=== PATIENT | female | born 1940 | race Two or more races ===

== ENCOUNTER 2020-09-24 03:20 | Emergency (ER) | payer OTHER ==
[~2020-09-24] VITALS: Ht 157.5 cm; Wt 52.6 kg
--- NOTE | 2020-09-24 03:31 | NUR ---
MARCO ANTONIO FROM HOME FOR C/O GENERALIZED WEAKNESS. PER EMS THEY FOUND THE PT SITTING ON HTE COUCH ON THE SCENE AND THE AND THE CG WERE NOT ABLE TO PICK HER UP. PER EMS PT IS NOT DAILY RISPERDAL BUT SHE HAD AN EXTRA DOSE AT [facility]. PT ALERT AND RESPONSIVE BUT CONFUSED. PT WAS ASSISTED TO BED 3 ER AND WAS PLACED ON A MONITOR, VSS. WILL CONT TO MONITOR ,
--- NOTE | 2020-09-24 03:45 | NUR ---
EKG at the bedside
--- NOTE | 2020-09-24 03:46 | NUR ---
Blood drawn by forest worker.
--- NOTE | 2020-09-24 03:54 | NUR ---
Xray at the bedside
[2020-09-24 03:58] LABS: BASOPHILS % (AUTO) 0.1 % (0.0-2.0); EOSINOPHILS % (AUTO) 0.3 % (0.0-6.0); HEMATOCRIT 34 % (33-45); HEMOGLOBIN 10.7 g/dL (11.5-14.8); LYMPHOCYTES # (AUTO) 1.3 /CMM (0.8-4.8); MEAN CORPUSCULAR HGB CONC 32 g/dl (31.0-36.0); MEAN CORPUSCULAR VOLUME 80 fL (82-100); MONOCYTES # (AUTO) 0.9 /CMM (0.1-1.30); MONOCYTES % (AUTO) 9.2 % (2.0-12.0); NEUTROPHILS # (AUTO) 7.7 /CMM (1.8-8.9); NEUTROPHILS % (AUTO) 77.4 % (43.0-81.0); PLATELET COUNT (AUTO) 160 /CMM (150-450); RED BLOOD CELL COUNT(AUTO) 4.26 MIL/uL (4.0-5.2)
[2020-09-24] MEDS ORDERED: IV NS 0.9% 1,000 ML BAG IV ONE (04:00)
--- NOTE | 2020-09-24 04:00 | NUR ---
Send UA to lab
[2020-09-24 04:01] LABS: CALCIUM, SERUM 9.8 mg/dL (8.5-10.1); CARBON DIOXIDE 23 mmol/L (21-32); CHLORIDE 101 mmol/L (98-107); CREATININE 3.7 mg/dL (0.6-1.3); GLUCOSE 168 mg/dL (74-106); POTASSIUM 4.6 mmol/L (3.5-5.1); SODIUM SERUM 135 mmol/L (136-145); UREA NITROGEN, BLOOD 52 mg/dL (7-18)
[2020-09-24 04:06] LABS: ALANINE AMINOTRANSFERASE 19 U/L (12-78); ALBUMIN 3.3 g/dL (3.4-5.0); ALKALINE PHOSPHATASE 64 U/L (46-116); ASPARTATE AMINOTRANSFERASE 31 U/L (15-37); BILIRUBIN,DIRECT 0.2 mg/dL (0.0-0.2); BILIRUBIN,TOTAL 0.6 mg/dL (0.2-1.0); LIPASE 154 U/L (73-393)
[2020-09-24 04:21] LABS: BILIRUBIN,URINE SMALL (NEGATIVE); COLOR,URINE YELLOW (YELLOW); LEUKOCYTE ESTERASE ,URINE NEGATIVE (NEGATIVE); NITRITE, URINE NEGATIVE (NEGATIVE); PROTEIN,URINE TRACE mg/dl (NEGATIVE); UGLUCOSE NEGATIVE (NEGATIVE); UROBILINOGEN,URINE 0.2 EU/dL (0.2)
--- NOTE | 2020-09-24 04:36 | NUR ---
Pt passed nursing swallow eval without any difficulties.
[2020-09-24 04:37] LABS: BACTERIA,URINE 1+ /HPF (None Seen); MUCUS,URINE Few /LPF (None Seen); RBC,URINE 0-2 /HPF (0-2); SQUAMOUS EPITHELIAL CELL,UR Few /HPF (None Seen); URINE AMORPHOUS URATE Few /HPF (None Seen)
--- NOTE | 2020-09-24 04:40 | NUR ---
[facility] PAGED PER DR RODRIGUEZ.
--- NOTE | 2020-09-24 04:44 | NUR ---
hydrotreater operator at the bedside to get blood drawn.
--- NOTE | 2020-09-24 04:45 | NUR ---
Send covid swab to lab.
[2020-09-24] MEDS ORDERED: CEFTRIAXONE 1GM BAG (ER ONLY) 50 ML IV ONE ×2 (04:54→05:00)
[2020-09-24] MEDS ORDERED: AZITHROMYCIN 500 MG in IV D5W 250 ML IV ONE (05:00)
[2020-09-24] MEDS ORDERED: AZITHROMYCIN 500 MG VIAL ONE (05:09)
--- NOTE | 2020-09-24 05:18 | NUR ---
Received a phone call from safia Mercado regarding Pt lactic acid is 2.5. Dr. Munguia is aware and informed.
--- NOTE | 2020-09-24 05:53 | NUR ---
CALL FROM [facility]. PT ACCEPTED TO [facility], ROOM 5111, BY DR LOWRY. # FOR REPORT [phone]. [facility] ETA [id number]
--- NOTE | 2020-09-24 06:08 | NUR ---
report given to zoila neely [facility]
[2020-09-24 07:04] VITALS: BP 134/74
--- NOTE | 2020-09-24 07:12 | NUR ---
Gave report to RJ Nova for JOSÉ MIGUEL.
--- NOTE | 2020-09-24 07:58 | NUR ---
patient picked up by [facility] in stable condition, in no distress, going to [facility].
== END 2020-09-24 07:58 | disposition short-term general hospital (02) ==
LOC: ER 03:22
DX: N17.9 Acute kidney failure, unspecified (principal); J18.9 Pneumonia, unspecified organism; I95.9 Hypotension, unspecified; E11.9 Type 2 diabetes mellitus without complications; I10 Essential (primary) hypertension; Z20.822 Contact with and (suspected) exposure to COVID-19
CPT/HCPCS: 36415; 71045; 80048; 80076; 81001; 83605 ×2; 83690; 84484; 85025; 87040 ×2; 87086; 87426; 93005; 96361; 96365; 96367; 99285; C9803; J0456; J0696; J7030; J7060

== ENCOUNTER 2023-12-18 17:34 | Emergency (ER) | payer OTHER ==
[~2023-12-18] VITALS: Ht 162.6 cm; Wt 54.4 kg
[2023-12-18 17:49] VITALS: TEMP 98
[2023-12-18 18:07] LABS: BASOPHILS # (AUTO) 0.1 K/uL (0.0-0.2); BASOPHILS % (AUTO) 0.8 % (0.0-2.0); EOSINOPHILS # (AUTO) 0.2 K/uL (0.0-0.7); EOSINOPHILS % (AUTO) 2.8 % (0.0-6.0); HEMATOCRIT 33 % (33-45); HEMOGLOBIN 9.9 g/dL (11.5-14.8); LYMPHOCYTES # (AUTO) 1.2 K/uL (0.8-4.8); LYMPHOCYTES % (AUTO) 19.5 % (20.0-44.0); MEAN CORPUSCULAR HEMOGLOBIN 22 PG (26.0-33.0); MEAN CORPUSCULAR HGB CONC 30 g/dl (31.0-36.0); MEAN CORPUSCULAR VOLUME 71 fL (82-100); MONOCYTES # (AUTO) 0.7 K/uL (0.1-1.30); MONOCYTES % (AUTO) 11.6 % (2.0-12.0); NEUTROPHILS # (AUTO) 4.2 K/uL (1.8-8.9); NEUTROPHILS % (AUTO) 65.3 % (43.0-81.0); PLATELET COUNT (AUTO) 153 K/uL (150-450); RED BLOOD CELL COUNT(AUTO) 4.58 MIL/uL (4.0-5.2); RED CELL DISTRIBUTION WIDTH 18.7 % (11.5-15.0); WHITE BLOOD COUNT (AUTO) 6.4 K/uL (4.3-11.0)
[2023-12-18] MEDS ORDERED: SIMV-49 PO (18:11)
[2023-12-18] MEDS ORDERED: PROP10TA68 PO (18:11)
[2023-12-18] MEDS ORDERED: DULO30CA52 PO (18:11)
[2023-12-18] MEDS ORDERED: BUSP5TAB3 PO (18:11)
[2023-12-18] MEDS ORDERED: PREG-57 PO (18:11)
[2023-12-18] MEDS ORDERED: IBUP-1955 PO (18:11)
[2023-12-18] MEDS ORDERED: LISI2.5T2 PO (18:11)
[2023-12-18] MEDS ORDERED: GLIP5TAB13 PO (18:11)
[2023-12-18] MEDS ORDERED: ALLO100T PO (18:11)
[2023-12-18] MEDS ORDERED: OMEP20TA5 PO (18:11)
[2023-12-18] MEDS ORDERED: AMOX875T2 PO (18:11)
[2023-12-18] MEDS ORDERED: METF-440 PO (18:11)
[2023-12-18 18:17] LABS: CALCIUM, SERUM 8.5 mg/dL (8.5-10.1); CARBON DIOXIDE 21 mmol/L (21-32); CHLORIDE 104 mmol/L (98-107); CREATININE 1.8 mg/dL (0.6-1.3); GLUCOSE 241 mg/dL (74-106); POTASSIUM 4.2 mmol/L (3.5-5.1); SODIUM SERUM 137 mmol/L (136-145); UREA NITROGEN, BLOOD 35 mg/dL (7-18)
[2023-12-18] MEDS: IV NS 0.9% 1,000 ML BAG IV ONE (18:19)
[2023-12-18 18:29] LABS: ALANINE AMINOTRANSFERASE 16 U/L (12-78); ALBUMIN 3.2 g/dL (3.4-5.0); ALKALINE PHOSPHATASE 58 U/L (46-116); ASPARTATE AMINOTRANSFERASE 19 U/L (15-37); BILIRUBIN,DIRECT 0.1 mg/dL (0.0-0.2); BILIRUBIN,TOTAL 0.3 mg/dL (0.2-1.0); NT-PRO BNP 111 pg/mL (0-125); TOTAL PROTEIN, SERUM 6.2 g/dL (6.4-8.2)
[2023-12-18 18:35] VITALS: BP 83/50; O2SAT 98
[2023-12-18 22:27] LABS: ANISOCYTOSIS 1+; EOSINOPHILS % (MANUAL) 5 % (0-4); LYMPHOCYTES % (MANUAL) 22 % (16-48); MONOCYTES % (MANUAL) 5 % (0-11.0); NEUTROPHILS % (MANUAL) 68 (42-76); OVALOCYTES 1+; PLATELET ESTIMATE ADEQUATE; ROULEAUX 1+
== END 2023-12-18 21:03 | disposition short-term general hospital (02) ==
LOC: ER 18:01
DX: S09.8XXA Other specified injuries of head, initial encounter (principal); R55 Syncope and collapse; I10 Essential (primary) hypertension; E11.9 Type 2 diabetes mellitus without complications; X58.XXXA Exposure to other specified factors, initial encounter; Y93.89 Activity, other specified; Y92.89 Other specified places as the place of occurrence of the external cause; Y99.8 Other external cause status
CPT/HCPCS: 99291; 72125; 96360; 93005; 71045; 70450; 85025; 80048; 80076; 36415; 84484 ×2; 83880; 82962; 85007; J7030